=== PATIENT | female | born 1945 ===

== ENCOUNTER 2017-05-21 06:11 | Day surgery (SDC) | payer MEDICARE, OTHER ==
[2016-11-26 14:20] VITALS: PULSE 58
[2017-05-19 12:30] VITALS: BMI 27.3
[2017-05-21] MEDS ORDERED: DiphenhydrAMINE 50 mg/ml Inj ONE (08:03)
[2017-05-21] MEDS ORDERED: Iohexol 350mg/ml 100 ML ONE ×2 (08:25→08:37)
[2017-05-21] MEDS ORDERED: Midazolam 2 MG/2 ML VIAL ONE (08:54)
[2017-05-21] MEDS ORDERED: Sodium Chloride 0.9% 500 ML IV SCH (09:48)
--- NOTE | 2017-05-21 09:56 | CP.PCM.PN ---
Subjective - Date & Time of Evaluation Date of Evaluation: 05/21/17 Time of Evaluation: 09:55 - Subjective Subjective: Patient s/p cath Non obstructive coronaries Normal EF resume all meds F/U with Dr. Bruno (Hemotology) in 1 week for INR check F/U Dr. Gonzalez in 2 weeks for groin check Objective - Medications Medications: Current Medications Sodium Chloride (Sodium Chloride 0.9%) 500 mls @ 100 mls/hr IV .Q5H AYAKA Stop: 05/21/17 13:00
[2017-05-21 11:10] VITALS: O2SAT 95
[2017-05-21 13:48] VITALS: BP 130/86; PULSE 95; RESP 20; TEMP 97.9
--- NOTE | 2017-05-22 18:21 | CARDCATH ---
PROCEDURE DATE: 05/21/2017 PROCEDURES: 1. Left heart catheterization. 2. Coronary angiogram. CLINICAL INDICATIONS: 1. Angina. 2. Atrial fibrillation. 3. Hypertension. 4. Hyperlipidemia. 5. History of bioprosthetic mitral valve replacement. 6. Abnormal stress test. REFERRING PHYSICIAN: Dr. Kervin Herzog. PERFORMING PHYSICIAN: Dr. Wes Gonzalez. PROCEDURE: After informed consent, the patient was prepped and draped in the usual sterile fashion. 2% lidocaine was given in the right groin for local anesthesia. Using micropuncture technique, 6-Trinidadian sheath was introduced into the right common femoral artery. Using the usual diagnostic catheter, left heart catheterization and coronary angiogram was performed. The patient tolerated the procedure well. FINDINGS: 1. Left main coronary artery is patent. 2. Left anterior descending coronary artery is patent. 3. Diagonal 1 branch has a proximal 60% nonobstructive stenosis. 4. Left circumflex and obtuse marginal branches are patent. 5. Right coronary artery is dominant and patent. 6. LV ejection fraction is approximately 70%. No wall motion abnormalities noted. EDP is 18. No gradient across the aortic valve. IMPRESSION: 1. Diagonal 1 (D1) branch of left anterior descending has a proximal 60% nonobstructive stenosis. 2. Nonobstructive coronaries. 3. Normal LV systolic function. Recommend medical management. Wes Gonzalez MD
== END 2017-05-21 14:14 | disposition home or self-care (01) ==
LOC: C.CATHLAB 06:11
PROVIDERS: ATTEND Internal Medicine Cardiovascular Disease
DX: I25.119 Atherosclerotic heart disease of native coronary artery with unspecified angina pectoris (principal); I48.91 Unspecified atrial fibrillation
CPT/HCPCS: 93458; 94770; C1729; C1760; C1769; C1887; J1200; J1644; J2250; J2930; J3010; J7040; Q9967

== ENCOUNTER 2018-08-25 07:45 | Emergency (ER) | payer MEDICARE, OTHER ==
[2018-08-25 07:46] VITALS: PULSE 58; BMI 27.3
[2018-08-25 08:09] VITALS: RESP 16; O2SAT 95
[2018-08-25 08:22] LABS: BASO % 0.2 % (0.0-2.0); EOS # 0.1 K/uL (0.0-0.7); HEMOGLOBIN 14.1 g/dL (11.0-16.0); LYMPH # 1.5 K/uL (1.0-4.3); LYMPH % 22.6 % (20.0-40.0); MEAN CORPUSCULAR HEMOGLOBIN 29.2 pg (27.0-31.0); MEAN CORPUSCULAR HGB CONC 33.9 g/dL (33.0-37.0); MEAN PLATELET VOLUME 9.9 fL (7.2-11.7); MONO # 0.7 K/uL (0.0-0.8); MONO % 10.9 % (0.0-10.0); NEUT # 4.4 K/uL (1.8-7.0); NEUT % 64.3 % (50.0-75.0); NRBC % 0.1 % (0.0-2.0); RBC 4.85 Mil/uL (3.80-5.20); RED CELL DISTRIBUTION WIDTH 14.2 % (11.5-14.5); WHITE BLOOD COUNT 6.8 K/uL (4.8-10.8)
[2018-08-25 08:30] LABS: INR 2.8; PROTHROMBIN TIME 30.8 SECONDS (9.7-12.2)
--- NOTE | 2018-08-25 08:36 | C.PDOC ---
History Of Present Illness 73 y/o female with history of asthma and on Coumadin 8mg presents to ED with c/o nose bleeding since she woke up 6am today. Patient reports chronic sob and denies chest pain, nausea, vomiting, headache, dizziness, trauma or any other complaints at this time. Time Seen by Provider: 08/25/18 07:54 Chief Complaint (Nursing): ENT Problem History Per: Patient History/Exam Limitations: None Onset/Duration Of Symptoms: Hrs Current Symptoms Are (Timing): Still Present Past Medical History Reviewed: Historical Data, Nursing Documentation, Vital Signs Vital Signs: Last Vital Signs Temp 97.7 F 08/25/18 07:56 Pulse 106 H 08/25/18 07:56 Resp 16 08/25/18 07:56 BP 147/111 H 08/25/18 07:56 Pulse Ox 95 08/25/18 07:56 - Medical History PMH: Anemia, Anxiety, Arthritis, Asthma, Atrial Fibrillation, CAD, Cardia Arrhythmia (a fib), Diverticulitis, Gastritis, Gall Bladder Disease, HTN, Hypercholesterolemia, Mitral Valve Prolapse, Osteoporosis, Peripheral Edema Surgical History: Appendectomy, Cholecystectomy, Endoscopy, Hernia Repair - [facility] Procedures INFLUENZA VACCINATION (07/18/14) LEFT HEART CARDIAC CATH (09/17/14) LT HEART ANGIOCARDIOGRAM (09/17/14) OTHER LOCAL DESTRUC SKIN (03/13/14) Family History: States: No Known Family Hx - Social History Hx Tobacco Use: No Hx Alcohol Use: No Hx Substance Use: No - Immunization History Hx Influenza Vaccination: Yes Review Of Systems Except As Marked, All Systems Reviewed And Found Negative. Constitutional: Negative for: Fever, Chills ENT: Positive for: Nose Discharge. Negative for: Nose Pain Cardiovascular: Negative for: Chest Pain Physical Exam - Physical Exam Additional Physical Exam Comments: Constitutional: No acute distress. Head: Normocephalic. Atraumatic. Eyes: PERRL. ENT: Moist mucous membranes. No gross bleeding in oropharynx. No active bleeding from nares at bedside. Neck: Supple. Cardiovascular: Regular rate. Radial pulse 2+ bilaterally. Chest: No tenderness. Respiratory: Clear to auscultation bilaterally. GI: Soft. Nontender. Nondistended. Back: No CVA tenderness. Musculoskeletal: No tenderness or swelling of extremities. Skin: No rash. Neurologic: Alert, no focal deficit. ED Course And Treatment - Laboratory Results Result Diagrams: 08/25/18 08:17 1218 08:17 O2 Sat by Pulse Oximetry: 95 (RA) Pulse Ox Interpretation: Normal Medical Decision Making Medical Decision Making: Plan: Blood work INR within normal limits. Patient in ED for over 2 hours without any active bleeding. Given instructions, if unsuccessful at home, instructed to come back to ED for packing. Disposition - Disposition Referrals: Domingo Jackson MD [Staff Provider] - Disposition: HOME/ ROUTINE Disposition Time: 09:18 Condition: STABLE Instructions: Nosebleeds Forms: [employer] (Kittitian) Print Language: BELARUSIAN - Clinical Impression Clinical Impression: Epistaxis - Scribe Statement The provider has reviewed the documentation as recorded by the Scribelyse Alonzo All medical record entries made by the Lupisibe were at my direction and personally dictated by me. I have reviewed the chart and agree that the record accurately reflects my personal performance of the history, physical exam, medical decision making, and the department course for this patient. I have also personally directed, reviewed, and agree with the discharge instructions and disposition.
[2018-08-25 08:46] LABS: ALB/GLOB RATIO 1.5 (1.0-2.1); ALBUMIN 4.6 g/dL (3.5-5.0); ALT/SGPT 39 U/L (9-52); AST/SGOT 43 U/L (14-36); BLOOD UREA NITROGEN 14 mg/dL (7-17); CALCIUM 8.9 mg/dl (8.6-10.4); GFR NON-AFRICAN AMERICAN > 60
[2018-08-25 10:07] VITALS: BP 162/103; PULSE 98; TEMP 97.8
== END 2018-08-25 10:08 | disposition home or self-care (01) ==
LOC: C.ER 07:45
DX: R04.0 Epistaxis (principal); E78.00 Pure hypercholesterolemia, unspecified; I48.91 Unspecified atrial fibrillation; I10 Essential (primary) hypertension; I25.10 Atherosclerotic heart disease of native coronary artery without angina pectoris; M81.0 Age-related osteoporosis without current pathological fracture; Z79.01 Long term (current) use of anticoagulants

== ENCOUNTER 2018-08-26 00:37 | Emergency (ER) | payer MEDICARE, OTHER ==
[2018-08-26 00:37] VITALS: PULSE 58; BMI 27.3
--- NOTE | 2018-08-26 00:59 | C.PDOC ---
History Of Present Illness Patient presents to the ER with a complaint of right nare epistaxis. Patient was seen yesterday for the same complaint, no active bleeding at present time. Denies fever or chills. Time Seen by Provider: 08/26/18 00:58 Chief Complaint (Nursing): ENT Problem History Per: Patient History/Exam Limitations: None Onset/Duration Of Symptoms: Days (Yesterday) Current Symptoms Are (Timing): Still Present Symptoms Have Been: Episodic Severity: Mild Pain Scale Rating Of: 1 Past Medical History Reviewed: Historical Data, Nursing Documentation, Vital Signs Vital Signs: Last Vital Signs Temp 97.8 F 08/26/18 00:44 Pulse 92 H 08/26/18 00:44 Resp 16 08/26/18 00:44 BP 171/84 H 08/26/18 00:44 Pulse Ox 97 08/26/18 00:44 - Medical History PMH: Anemia, Anxiety, Arthritis, Asthma, Atrial Fibrillation, CAD, Cardia Arrhythmia (a fib), Diverticulitis, Gastritis, Gall Bladder Disease, HTN, Hypercholesterolemia, Mitral Valve Prolapse, Osteoporosis, Peripheral Edema Denies: Hypothyroidism, Rheumatoid Arthritis Surgical History: Appendectomy, Cholecystectomy, Endoscopy, Hernia Repair - [facility] Procedures INFLUENZA VACCINATION (07/18/14) LEFT HEART CARDIAC CATH (09/17/14) LT HEART ANGIOCARDIOGRAM (09/17/14) OTHER LOCAL DESTRUC SKIN (03/13/14) Family History: States: No Known Family Hx - Social History Hx Tobacco Use: No Hx Alcohol Use: No Hx Substance Use: No - Immunization History Hx Influenza Vaccination: Yes Review Of Systems Constitutional: Negative for: Fever, Chills ENT: Positive for: Other (Epistaxis) Cardiovascular: Negative for: Chest Pain, Palpitations Respiratory: Negative for: Cough, Shortness of Breath Gastrointestinal: Negative for: Nausea, Vomiting Neurological: Negative for: Weakness, Numbness Physical Exam - Physical Exam Appears: Non-toxic Skin: Warm, Dry Head: Normacephalic Nose: Other (No active bleeding, small amount of blood on right nare) Oral Mucosa: Moist Throat: No Erythema, No Exudate Neck: Trachea Midline, Supple Chest: Symmetrical, No Tenderness Cardiovascular: Rhythm Regular Respiratory: No Rales, No Rhonchi, No Wheezing Gastrointestinal/Abdominal: Soft, No Tenderness Neurological/Psych: Oriented x3 ED Course And Treatment O2 Sat by Pulse Oximetry: 97 Pulse Ox Interpretation: Normal Progress Note: 2:20 No active bleeding seen. Pt wants to go home. Will return if symptoms recur Disposition Counseled Patient/Family Regarding: Studies Performed, Diagnosis, Need For Followup - Disposition Referrals: Kervin Herzog Jr., MD [Medical Doctor] - Disposition: HOME/ ROUTINE Disposition Time: 00:59 Condition: FAIR Additional Instructions: por favor, presione ambos nares si el sangrado se repite. Si no se detiene despus de 5 a 8 minutos, regrese al ED Instructions: Nosebleeds (DC) Forms: [employer] (Albanian) Print Language: GERMAN - Clinical Impression Clinical Impression: Epistaxis - Scribe Statement The provider has reviewed the documentation as recorded by the Scribe Raj Gamboa All medical record entries made by the Scribe were at my direction and personally dictated by me. I have reviewed the chart and agree that the record accurately reflects my personal performance of the history, physical exam, medical decision making, and the department course for this patient. I have also personally directed, reviewed, and agree with the discharge instructions and disposition.
[2018-08-26 01:46] VITALS: BP 155/92
[2018-08-26 02:24] VITALS: O2SAT 97
[2018-08-26 02:58] VITALS: PULSE 78; RESP 20; TEMP 98
== END 2018-08-26 02:58 | disposition home or self-care (01) ==
LOC: C.ER 00:37
DX: R04.0 Epistaxis (principal)

== ENCOUNTER 2018-08-26 14:56 | Emergency (ER) | payer MEDICARE, OTHER ==
[2018-08-26 14:56] VITALS: PULSE 58; BMI 27.3
--- NOTE | 2018-08-26 15:38 | C.PDOC ---
History Of Present Illness 73 y/o female,w/PMHx of CAD, HTN, Afib, and hypercholesterolemia presents to the ER complaining of epistaxis. I evaluated patient for epistaxis yesterday morning and another physician evaluated her during her 2nd visit to the ER yesterday. During both visits, patient did not have active epistaxis. Patient states that she is taking Warfarin. Denies having fever and chills. Time Seen by Provider: 08/26/18 15:00 Chief Complaint (Nursing): ENT Problem History Per: Patient History/Exam Limitations: no limitations Onset/Duration Of Symptoms: Days Current Symptoms Are (Timing): Still Present Severity: Moderate Past Medical History Reviewed: Historical Data, Nursing Documentation, Vital Signs Vital Signs: Last Vital Signs Temp 97.8 F 08/26/18 15:10 Pulse 87 08/26/18 15:10 Resp 17 08/26/18 15:10 BP 169/72 H 08/26/18 15:10 Pulse Ox 97 08/26/18 15:10 - Medical History PMH: Anemia, Anxiety, Arthritis, Asthma, Atrial Fibrillation, CAD, Cardia Arrhythmia (a fib), Diverticulitis, Gastritis, Gall Bladder Disease, HTN, Hypercholesterolemia, Mitral Valve Prolapse, Osteoporosis, Peripheral Edema Denies: Hypothyroidism, Rheumatoid Arthritis Surgical History: Appendectomy, Cholecystectomy, Endoscopy, Hernia Repair - [facility] Procedures INFLUENZA VACCINATION (07/18/14) LEFT HEART CARDIAC CATH (09/17/14) LT HEART ANGIOCARDIOGRAM (09/17/14) OTHER LOCAL DESTRUC SKIN (03/13/14) Family History: States: No Known Family Hx - Social History Hx Tobacco Use: No Hx Alcohol Use: No Hx Substance Use: No - Immunization History Hx Influenza Vaccination: Yes Review Of Systems Except As Marked, All Systems Reviewed And Found Negative. Constitutional: Negative for: Fever, Chills ENT: Positive for: Nose Discharge Physical Exam - Physical Exam Additional Physical Exam Comments: Constitutional: No acute distress. Head: Normocephalic. Atraumatic. Eyes: PERRL. ENT: Moist mucous membranes.minimal oozing from right nare. Neck: Supple. Cardiovascular: Regular rate. Radial pulse 2+ bilaterally. Chest: No tenderness. Respiratory: Clear to auscultation bilaterally. GI: Soft. Nontender. Nondistended. Back: No CVA tenderness. Musculoskeletal: No tenderness or swelling of extremities. Skin: No rash. Neurologic: Alert, no focal deficit. ED Course And Treatment O2 Sat by Pulse Oximetry: 97 (RA) Pulse Ox Interpretation: Normal Medical Decision Making Medical Decision Making: Rhino rocket placed. Dr. Jackson's office called, states patient can walk into office on Wednesday between 9 and 11. Disposition - Disposition Referrals: Domingo Jackson MD [Staff Provider] - Disposition: HOME/ ROUTINE Disposition Time: 15:37 Condition: STABLE Instructions: Nosebleeds Forms: [employer] (Puerto Rican) - Clinical Impression Clinical Impression: Epistaxis - Scribe Statement The provider has reviewed the documentation as recorded by the Scribe Carlos Garza Provider Attestation: All medical record entries made by the Scribe were at my direction and personally dictated by me. I have reviewed the chart and agree that the record accurately reflects my personal performance of the history, physical exam, medical decision making, and the department course for this patient. I have also personally directed, reviewed, and agree with the discharge instructions and disposition.
[2018-08-26 16:28] VITALS: BP 157/84; PULSE 88; RESP 16; TEMP 97.9
[2018-08-26 22:29] VITALS: O2SAT 97
== END 2018-08-26 16:27 | disposition home or self-care (01) ==
LOC: C.ER 14:56
DX: R04.0 Epistaxis (principal)